=== PATIENT | male | born 1950 | race Caucasian/White ===

== ENCOUNTER 2021-07-17 11:00 | Outpatient (RCR) | payer MEDICARE, SELFPAY ==
--- NOTE | 2021-05-27 16:25 | PTOPEVAL ---
PHYSICAL THERAPY EVALUATION and PLAN OF CARE Thank you for referring Kyle Garcia to [facility][Note 3].? Kyle was seen today for evaluation and treatment of pelvic floor dysfunction with signs and symptoms consistent with mixed urinary incontinence. He will be seen every 2-3weeks as needed over the course of 8 weeks for further treatment and follow up. Please review, sign, date and return this plan of care ISABELA. I agree with and certify that the following plan of care is medically necessary. Referring Physician Date Evaluation Evaluation Information Problem Diagnosis urinary incontinence s/p prostectomy/prostate cancer Subjective Information states that he is experiencing Query Text:As Reported By Patient/ leaking of urine since his Family prostectomy. Less leakage in the morning and evening but more leakage during the day when he is more active climbing ladders and carrying things. States that in the morning and evening when feels the urge to go the bathroom he gets up and goes. States that he drinks 2cups of coffee in the morning and then does not drink much water the rest of the day because he is nervous about leaking. remembers that prior to prostectomy he did experience espiodes of strong urge to urinate with some dribbling prior to making to the toilet Pain Assessment Timing of Pain Assessment Timing of Pain Assessment Assessment Self Report Self Report Pain Level 0 Pain Score Pain Score 0: Self Report Cervical and Lumbar Muscle Testing Lumbar Strength Upper Abdominal Strength 3-Fair- Lower Extremity Muscle Strength Testing Hip Strength Bilateral Hip Flexion Strength 4+ Good + Hip Extension Strength 3+ Fair + Hip Abduction Strength 3+ Fair + Hip Adduction Strength 3+ Fair + Knee Strength Bilateral Knee Flexion Strength 5 Normal Knee Extension Strength 5 Normal Pelvic Health Evaluation Pelvic Floor Assessment Permission Received for External/ Yes: externally through Internal Perineal Exam clothing Sustained Levator Ani Strength 4seconds x 6 reps at least 3/5 power Additional Comments used cue of picking up rendon with anus to be able to perform a good pelvic floor
--- NOTE | 2021-07-17 11:17 | PTOPEVAL ---
PHYSICAL THERAPY DISCHARGE NOTE Thank you for referring Kyle Garcia to [facility].? Please review, sign, date and return this plan of care ISABELA. I agree with and certify that the following plan of care is medically necessary. Referring Physician Date Diagnosis urinary incontinence s/p prostectomy/prostate cancer Subjective Information After 6 weeks of performing Query Text:As Reported By Patient/ pelvic floor exercises with Family supervision and education from PT, he states he feels like there is no change in his leakage. He does report that night time voiding is down to 1, sometimes 2x, from a consistent 3x/night. States that he is changing his depends up to 5x/day. States that sometimes he feels like a normal urge to go to the bathroom so he does, other times he can feel a dribble of a leak, and other times he can feel his depends with his hand and realize that it is full and did not even realize that he leaked. Never has any pain. He did increase his water intake from initial visit - does state that he was drinking 3 water bottles a day and felt like it just went right through him so he dropped it down to 2 bottles/ day. Lower Extremity Muscle Strength Testing Hip Strength Bilateral Hip Flexion Strength 5 Normal Hip Extension Strength 4- Good - Hip Abduction Strength 4 Good Hip Adduction Strength 4 Good Knee Strength Bilateral Knee Flexion Strength 5 Normal Knee Extension Strength 5 Normal Pelvic Health Evaluation Pelvic Floor Assessment Permission Received for External/ Yes: externally through Internal Perineal Exam clothing Sustained Levator Ani Strength 10seconds x 6 reps at least 4/ 5 power PT Clinical Summary Kyle is a 71 yo male participating in pelvic floor physical therapy. His subjective report to me is that there have been no
== END 2021-07-17 14:04 | disposition home or self-care (01) ==
LOC: ANHPT 11:00
DX: N39.498 Other specified urinary incontinence (principal)
CPT/HCPCS: 97110; 97112; 97140; 97162; 97530